=== PATIENT | male | born 2000 | race Two or more races ===

== ENCOUNTER 2024-03-31 09:10 | Emergency (ER) | payer OTHER ==
[~2024-03-31] VITALS: Ht 162.6 cm; Wt 65.8 kg
[~2024-03-31 09:10] MED LIST: ABILIFY2 MG; ALBUTEROL17 GM IH; CELESTONE0.6 MG/5 M PO; DESPEC DM SYRU473 ML PO; NASONEX17 GM NS
[2024-03-31] MEDS ORDERED: LACOSAMIDE50 MG PO (09:40)
[2024-03-31] MEDS ORDERED: LORAZEPAM1 MG PO (09:40)
[2024-03-31] MEDS ORDERED: CLOBAZAM2.5 MG/1 M PO (09:40)
[2024-03-31] MEDS ORDERED: TOPIRAMATE200 MG PO (09:40)
[2024-03-31] MEDS ORDERED: LEVETIRACE100 MG/1 M PO (09:41)
[2024-03-31] MEDS ORDERED: GUAIFENESIN 200 MG/10 ML BLIST.PACK PO ONE (10:30)
[2024-03-31] MEDS ORDERED: BENZONATATE 100 MG CAPSULE PO ONE (10:30)
[2024-03-31 10:54] LABS: HEMATOCRIT 46.8 % (39.0-48.0); HEMOGLOBIN 15.9 g/dL (13-16.00); MEAN CELL VOLUME 93.5 fL (80.0-100.00); MEAN CORPUSCULAR HEMOGLOBIN 31.8 pg (27.00-32.0); PLATELET COUNT 258 K/uL (150-450); RED BLOOD COUNT 5.01 M/uL (4.00-6.00); RED CELL DISTRIBUTION WIDTH 15.5 % (11.5-14.5)
[2024-03-31 11:11] LABS: CALCIUM 8.7 mg/dL (8.5-10.1); CREATININE SERUM 0.92 mg/dL (0.70-1.30); GFR 103.85; POTASSIUM 3.58 mEq/L (3.5-5.1)
== END 2024-03-31 12:45 | disposition home or self-care (01) ==
LOC: ER 09:12
PROVIDERS: General Practice
DX: J06.9 Acute upper respiratory infection, unspecified (principal); R05.9 Cough, unspecified; Z20.822 Contact with and (suspected) exposure to COVID-19; Z91.018 Allergy to other foods

== ENCOUNTER 2024-08-11 10:40 | Emergency (ER) | payer OTHER ==
[~2024-08-11] VITALS: Ht 162.6 cm; Wt 68.0 kg
[~2024-08-11 10:40] MED LIST changes: +CLOBAZAM2.5 MG/1 M PO; +LACOSAMIDE50 MG PO; +LEVETIRACE100 MG/1 M PO; +LORAZEPAM1 MG PO; +TOPIRAMATE200 MG PO
== END 2024-08-11 16:32 | disposition home or self-care (01) ==
LOC: ER 10:40
DX: R53.81 Other malaise (principal); R05.9 Cough, unspecified; Z91.018 Allergy to other foods